=== PATIENT | female | born 1975 | race African-American/Black ===

== ENCOUNTER 2018-03-09 09:10 | Inpatient (IN) | payer SELFPAY ==
[~2018-03-09] VITALS: Ht 162.6 cm; Wt 70.0 kg
[~2018-03-09 09:10] MED LIST: PRENTAB62 PO
[2018-03-09] MEDS ORDERED: LACTATED RINGER'S 1000 ML INJ 1,000 ML IV PRN (09:59)
[2018-03-09] MEDS ORDERED: SODIUM CHLORID 0.9% 500 ML INJ 500 ML IV PRN (10:00)
[2018-03-09] MEDS ORDERED: LIDOCAINE HCL 1% 50 ML VIAL INFIL PRN (10:00)
[2018-03-09] MEDS ORDERED: OXYTOCIN 30 UNITS-500ML PREMIX 500 ML IV PRN (10:00)
[2018-03-09] MEDS ORDERED: CITRIC ACID-SODIUM CITRATE LIQ 30 ML UDC PO SCH (10:00)
[2018-03-09] MEDS ORDERED: OXYTOCIN 30 UNITS-500ML PREMIX 500 ML IV ONE (10:00)
[2018-03-09] MEDS ORDERED: MINERAL OIL 10 ML VIAL TOPICAL PRN (10:00)
[2018-03-09] MEDS ORDERED: LIDOCAINE HCL 1% 50 ML VIAL I-DERMAL PRN (10:00)
[2018-03-09 10:19] LABS: AUTOMATED NEUTROPHIL # 4.3 TH/MM3 (1.8-7.7); BASOPHIL % 0.5 % (0.0-2.0); EOSINOPHIL % 0.6 % (0.0-4.0); HEMATOCRIT 36.9 % (35.0-46.0); HEMOGLOBIN 12.9 GM/DL (11.6-15.3); LYMPH % 21.9 % (9.0-44.0); LYMPHOCYTE # 1.4 TH/MM3 (1.0-4.8); MEAN CELL VOLUME 93.8 FL (80.0-100.0); MEAN CORPUSCULAR HEMOGLOBIN 32.7 PG (27.0-34.0); MEAN CORPUSCULAR HGB CONC 34.9 % (32.0-36.0); MEAN PLATELET VOLUME 11.1 FL (7.0-11.0); MONO % 6.6 % (0.0-8.0); MONOCYTE # 0.4 TH/MM3 (0-0.9); NEUT % 70.4 % (16.0-70.0); PLATELET COUNT 94 TH/MM3 (150-450); RED BLOOD COUNT 3.93 MIL/MM3 (4.00-5.30); RED CELL DISTRIBUTION WIDTH 14.2 % (11.6-17.2); WHITE BLOOD COUNT 6.2 TH/MM3 (4.0-11.0)
[2018-03-09] MEDS ORDERED: SODIUM CHLOR 0.9% 1000 ML INJ 1,000 ML IV PRN (10:19)
[2018-03-09 10:25] LABS: AMORPHOUS SEDIMENT, URINE FEW; BACTERIA, URINE RARE /hpf; BILIRUBIN, URINE NEG (NEG); BLOOD, URINE SMALL (NEG); GLUCOSE,URINE NEG (NEG); KETONE, URINE NEG (NEG); MUCUS URINE FEW /lpf (OCC); NITRITE,URINE NEG (NEG); SQUAMOUS EPITHELIAL CELL URINE 12 /hpf (0-5); URINE COLOR LIGHT-YELLOW (YELLW/STRAW); URINE LEUKOCYTE ESTERASE LARGE (NEG)
[2018-03-09 11:05] LABS: ACANTHOCYTES OCC (NORMAL)
--- NOTE | 2018-03-09 11:23 | HHI.HP ---
HPI Chief Complaint SROM at 5pm Tuesday with no labor (PROM) Date Seen: Mar 09, 2018 Travel History International Travel<30 Days: No Contact w/Intl Traveler<30Days: No Known Affected Area: No History of Present Illness HPI 42 yo mbf at 40 + weeks at 3 cm last visit. noted leakage of fluid slightly last night and continued throughout to this am. No regular UCs. Good movement. No nausea, vomiting, blukrred vision or headache. PNC with HOGA and no PTL, GDM or HTN. Weeks Gestation: 41 Para: 1 History Past Medical History Medical History: Denies Significant Hx Past Surgical History Surgical History: No Previous Surgery Family History Family History: Negative Social History Alcohol Use: No Tobacco Use: No Substance Abuse: No Allergies-Medications (Allergen,Severity, Reaction): Coded Allergies: No Known Allergies (Unverified , 12/01/12) Home Meds Reported Medications Vit W/ Ferrous Fumara ( Vitamins Plus) Plus Tab, 1 PO 12/01/12 Physical Exam Narrative GENERAL: Well-nourished, well-developed patient. SKIN: Warm and dry. HEAD: Normocephalic and atraumatic. EYES: No scleral icterus. No injection or drainage. ENT: No nasal drainage noted. Mucous membranes pink. Airway patent. NECK: Supple, trachea midline. No JVD. CARDIOVASCULAR: Regular rate and rhythm without murmurs, gallops, or rubs. RESPIRATORY: Breath sounds equal bilaterally. No accessory muscle use. BREASTS: Bilateral exam showed no masses , no retractions, no nipple discharge. ABDOMEN/GI: Abdomen soft, non-tender, bowel sounds present, no rebound, no guarding 39 cm 3 cm/80/-2 Strip catogry one proven pelvis EFW 7 EXTREMITIES: No cyanosis or edema. BACK: Nontender without obvious deformity. No CVA tenderness. NEUROLOGICAL: Awake and alert. Motor and sensory grossly within normal limits. Five out of 5 muscle strength in all muscle groups. Normal speech. Caprini VTE Risk Assessment Caprini VTE Risk Assessment: No/Low Risk (score <= 1) Caprini Risk Assessment Model Point Value = 1 Point Value = 2 Point Value = 3 Point Value = 5 Age 41-60 Minor surgery BMI > 25 kg/m2 Swollen legs Varicose veins or History of unexplained or recurrent spontaneous Oral contraceptives or hormone replacement Sepsis (< 1 month) Serious lung disease, including pneumonia (< 1 month) Abnormal pulmonary function Acute myocardial infarction Congestive heart failure (< 1 month) History of inflammatory bowel disease Medical patient at bed rest Age 61-74 Arthroscopic surgery Major open surgery (> 45 min) Laparoscopic surgery (> 45 min) Malignancy Confined to bed (> 72 hours) Immobilizing plaster cast Central venous access Age >= 75 History of VTE Family history of VTE Factor V Leiden Prothrombin [id number] Lupus anticoagulant Anticardiolipin antibodies Elevated serum homocysteine Heparin-induced thrombocytopenia Other congenital or acquired thrombophilia Stroke (< 1 month) Elective arthroplasty Hip, pelvis, or leg fracture Acute spinal cord injury (< 1 month) Prophylaxis Regimen Total Risk Factor Score Risk Level Prophylaxis Regimen 0-1 Low Early ambulation 2 Moderate Order ONE of the following: *Sequential Compression Device (SCD) *Heparin 5000 units SQ BID 3-4 Higher Order ONE of the following medications: *Heparin 5000 units SQ TID *Enoxaparin/Lovenox 40 mg SQ daily (WT < 150 kg, CrCl > 30 mL/min) *Enoxaparin/Lovenox 30 mg SQ daily (WT < 150 kg, CrCl > 10-29 mL/min) *Enoxaparin/Lovenox 30 mg SQ BID (WT < 150 kg, CrCl > 30 mL/min) AND/OR *Sequential Compression Device (SCD) 5 or more Highest Order ONE of the following medications: *Heparin 5000 units SQ TID (Preferred with Epidurals) *Enoxaparin/Lovenox 40 mg SQ daily (WT < 150 kg, CrCl > 30 mL/min) *Enoxaparin/Lovenox 30 mg SQ daily (WT < 150 kg, CrCl > 10-29 mL/min) *Enoxaparin/Lovenox 30 mg SQ BID (WT < 150 kg, CrCl > 30 mL/min) AND *Sequential Compression Device (SCD) Data Data Orders Orders Ob (2e) Additional Admit Info (03/09/18 09:35) ^ Non Stress Test (03/09/18 09:59) Response To Medication .Post New Med Administration, Reaction (03/09/18 09:59) ^ Discontinue Medication (03/09/18 09:59) Oxytocin 30 Units-500ml Premix (Pitocin (03/09/18 10:00) Admit To Inpatient (03/09/18 ) Vital Signs (Adult) .Per protocol (03/09/18 09:59) Activity Oob Ad Alecia (03/09/18 09:59) Heart (03/09/18 09:59) Amnioinfusion (03/09/18 09:59) Urinary Catheter Management .ONCE (03/09/18 09:59) Lactated Ringer's 1000 Ml Inj (Lr 1000 M (03/09/18 09:59) Lactated Ringer's 1000 Ml Inj (Lr 1000 M (03/09/18 09:59) Sodium Chlorid 0.9% 500 Ml Inj (Ns 500 M (03/09/18 10:00) Sodium Chlor 0.9% 1000 Ml Inj (Ns 1000 M (03/09/18 10:19) Lidocaine 1% Inj (50 Ml) (Xylocaine 1% I (03/09/18 10:00) Citric Acid-Sodium Citrate Liq (Bicitra (03/09/18 10:00) Fentanyl Inj (Fentanyl Inj) (03/09/18 10:00) Fentanyl Inj (Fentanyl Inj) (03/09/18 10:00) Cefazolin Inj (Ancef Inj) (03/09/18 14:00) Complete Blood Count With Diff (03/09/18 09:59) Hold Clot (03/09/18 09:59) Abo/Rh Blood Type (03/09/18 09:59) Urinalysis - C+S If Indicated (03/09/18 09:59) Ob/Psych Drug Screen, Urine (03/09/18 09:59) Resp Oxygen Non Rebreathe Mask (03/09/18 ) ^ Epidural / Intrathecal Infus (03/09/18 09:59) Oxytocin 30 Units-500ml Premix (Pitocin (03/09/18 10:00) Lidocaine 1% Inj (50 Ml) (Xylocaine 1% I (03/09/18 10:00) Light Mineral Oil (Muri-Lube Oil) (03/09/18 10:00) Inpatient Certification (03/09/18 ) Specimen To Be Collected PRN (03/09/18 09:59) Specimen To Be Collected PRN (03/09/18 09:59) Diet Regular Basic (03/09/18 Lunch) Urine Culture (03/09/18 09:38) Labs Laboratory Tests Test 03/09/18 09:38 White Blood Count 6.2 Red Blood Count 3.93 Hemoglobin 12.9 Hematocrit 36.9 Mean Corpuscular Volume 93.8 Mean Corpuscular Hemoglobin 32.7 Mean Corpuscular Hemoglobin Concent 34.9 Red Cell Distribution Width 14.2 Platelet Count 94 Mean Platelet Volume 11.1 Neutrophils (%) (Auto) 70.4 Lymphocytes (%) (Auto) 21.9 Monocytes (%) (Auto) 6.6 Eosinophils (%) (Auto) 0.6 Basophils (%) (Auto) 0.5 Neutrophils # (Auto) 4.3 Lymphocytes # (Auto) 1.4 Monocytes # (Auto) 0.4 Eosinophils # (Auto) 0.0 Basophils # (Auto) 0.0 CBC Comment AUTO DIFF Differential Comment AUTO DIFF CONFIRMED Platelet Estimate LOW Platelet Morphology Comment ENLARGED Acanthocytes OCC Urine Color LIGHT-YELLOW Urine Turbidity HAZY Urine pH 6.0 Urine Specific [place] 1.013 Urine Protein 30 Urine Glucose (UA) NEG Urine Ketones NEG Urine Occult Blood SMALL Urine Nitrite NEG Urine Bilirubin NEG Urine Urobilinogen LESS THAN 2.0 Urine Leukocyte Esterase LARGE Urine RBC 6 Urine WBC 28 Urine Squamous Epithelial Cells 12 Urine Amorphous Sediment FEW Urine Bacteria RARE Urine Mucus FEW Microscopic Urinalysis Comment CULTURE INDICATED Urine Opiates Screen NEG Urine Barbiturates Screen NEG Urine Amphetamines Screen NEG Urine Benzodiazepines Screen NEG Urine Cocaine Screen NEG Urine Cannabinoids Screen NEG Date/Time Source Procedure Growth Status 03/09/18 09:38 Urine Clean Catch Urine Culture Pending Received Assessment/Plan Assessment and Plan anticipate will augment if needed forewater broken and ancef started can eat and use birthing ball Beti Hernandez MD Mar 09, 2018 11:23
[2018-03-09] MEDS: LACTATED RINGER'S 1000 ML INJ 1,000 ML IV SCH ×2 (14:18→17:59)
[2018-03-09] MEDS ORDERED: ACETAMINOPHEN 1000 MG/100 ML 100 ML IV SCH (21:00)
[2018-03-10] MEDS ORDERED: MEPERIDINE HCL 50 MG/ML VIAL ONE (01:07)
--- NOTE | 2018-03-10 01:16 | PD.OB.DELI ---
Weeks gestation: 41 Pt started active labor?: Yes Active labor start date: Mar 10, 2018 Active labor start time: 22:00 Medical induction of labor?: No Artificial rupture of membrane: No Anesthesia: None Episiotomy: None Vaginal Delivery: Normal Presentation: Occiput anterior Nuchal Cord: None Delayed cord clamping (45 sec): Yes : Female Delivery date: Mar 10, 2018 Delivery time: 01:15 One Minute : 8 Five Minute : 9 Weight: 7 Placenta: Spontaneous delivery Laceration: 1 deg Repair: Vicryl running Estimated blood loss: 400 Beti Hernandez MD Mar 10, 2018 01:16
[2018-03-10] MEDS ORDERED: SODIUM CHLORIDE 0.9% FLUSH 10 ML FLUSH IV FLUSH PRN (01:30)
[2018-03-10] MEDS ORDERED: OXYTOCIN 30 UNITS-500ML PREMIX 500 ML IV SCH (01:30)
[2018-03-10] MEDS ORDERED: WITCH HAZEL 50%/GLYCERIN 12.5% 40 PAD JAR TOPICAL PRN (01:30)
[2018-03-10] MEDS ORDERED: ACETAMINOPHEN/HYDROcodone 325 MG/5 MG TAB PO PRN (01:30)
[2018-03-10] MEDS ORDERED: ZOLPIDEM TARTRATE 5 MG TAB PO PRN (01:30)
[2018-03-10] MEDS ORDERED: BENZOCAINE 20% TOPICAL SPRAY 60 ML CAN TOPICAL PRN (01:30)
[2018-03-10] MEDS ORDERED: DOCUSATE SODIUM 50 MG/SENNA 8.6 MG TAB PO PRN (01:30)
[2018-03-10] MEDS ORDERED: ONDANSETRON ODT 4 MG TAB PO PRN (01:30)
[2018-03-10] MEDS ORDERED: ALUMINUM/MAGNESIUM/SIMETH 30 ML CUP PO PRN (01:30)
[2018-03-10] MEDS ORDERED: MEPERIDINE HCL 25 MG/ML VIAL IV SCH (02:00)
[2018-03-10 03:40] VITALS: BP 85/57; PULSE 65; RESP 16; TEMP 98.6
--- NOTE | 2018-03-10 08:52 | HHI.OB ---
Subjective Post Day: 0 Remarks fatigued but happy will be nursing no complaints at this time Objective Vitals/I&O Vital Signs Date Time Temp Pulse Resp B/P (MAP) Pulse Ox O2 Delivery O2 Flow Rate FiO2 03/10/18 03:40 98.6 65 16 85/57 (66) 03/10/18 02:34 14 03/10/18 02:34 14 Objective Remarks GENERAL: Well-nourished, well-developed patient. CARDIOVASCULAR: Regular rate and rhythm without murmurs, gallops, or rubs. RESPIRATORY: Breath sounds equal bilaterally. No accessory muscle use. ABDOMEN/GI: Abdomen soft, non-tender. Fundus: Firm, non-tender at umbilicus. GENITOURINARY: Light to moderate bleeding. EXTREMITIES: No cyanosis or edema, non-tender, without signs of DVT. Medications and IVs Current Medications Medications (Trade) Dose Ordered Sig/Kd Route Start Time Stop Time Status Last Admin Oxytocin 500 ml @ 0 mls/hr TITRATE PRN IV 03/09/18 10:00 Lactated Ringer's 1,000 ml @ 125 mls/hr Q8H IV 03/09/18 09:59 03/09/18 17:59 Lactated Ringer's 1,000 ml @ 3,000 mls/hr Q20M PRN IV 03/09/18 09:59 03/09/18 14:18 Sodium Chloride 500 ml @ 1,000 mls/hr ONCE PRN IV 03/09/18 10:00 03/10/18 09:59 Sodium Chloride 1,000 ml @ 100 mls/hr Q10H PRN IV 03/09/18 10:19 (Xylocaine 1% Inj (50 ml)) 0.1 ml UNSCH X1 PRN I-DERMAL 03/09/18 10:00 03/12/18 09:59 (Bicitra Liq) 30 ml FORKLIFT TRUCK OPERATOR PO 03/09/18 10:00 03/13/18 09:59 (fentaNYL INJ) 50 mcg Q1H PRN IV PUSH 03/09/18 10:00 (fentaNYL INJ) 100 mcg Q1H PRN IV PUSH 03/09/18 10:00 (Xylocaine 1% Inj (50 ml)) 10 ml UNSCH X1 PRN INFIL 03/09/18 10:00 03/11/18 09:59 (Muri-Lube Oil) 10 ml UNSCH PRN TOPICAL 03/09/18 10:00 (NS Flush) 2 ml BID IV FLUSH 03/10/18 09:00 (NS Flush) 2 ml UNSCH PRN IV FLUSH 03/10/18 01:30 (Tylenol) 650 mg Q4H PRN PO 03/10/18 01:30 (Motrin) 800 mg Q8H PRN PO 03/10/18 01:30 (Americaine 20% Top Spr) 1 spray Q4H PRN TOPICAL 03/10/18 01:30 03/10/18 03:47 (Tucks Pads) 1 applic QID PRN TOPICAL 03/10/18 01:30 03/10/18 03:46 (Avis-Colace) 2 tab Q12H PRN PO 03/10/18 01:30 (Ambien) 5 mg HS PRN PO 03/10/18 01:30 (M-M-R Ii Inj) 0.5 ml ONCE ONCE SQ 03/10/18 16:00 03/10/18 16:01 (Boostrix Inj) 0.5 ml ONCE ONCE IM 03/10/18 16:00 03/10/18 16:01 (Mag-Al Plus Susp Liq) 15 ml Q8H PRN PO 03/10/18 01:30 (Zofran Odt) 4 mg Q6H PRN PO 03/10/18 01:30 ([place] 5-325 Mg) 1 tab Q6H PRN PO 03/10/18 01:30 03/10/18 01:34 Assessment/Plan Assessment and Plan anticipate will augment if needed forewater broken and ancef started can eat and use birthing ball 03/10/18 PPD 0 doing well in post resting probable discharge Tuesday Beti Hernandez MD Mar 10, 2018 08:52
[2018-03-10] MEDS ORDERED: SODIUM CHLORIDE 0.9% FLUSH 10 ML FLUSH IV FLUSH SCH (09:00)
[2018-03-10] MEDS: ACETAMINOPHEN 325 MG TAB PO PRN ×2 (10:00→17:45)
[2018-03-10] MEDS: IBUPROFEN 800 MG TAB PO PRN ×2 (10:01→17:46)
[2018-03-10] MEDS ORDERED: MEASLES, MUMPS, RUBELLA VACCINE 0.5 ML VIAL SQ ONE (16:00)
[2018-03-10] MEDS ORDERED: DIPHTH/TETANUS/ACEL PERTUSSIS (BOOSTER) 0.5 ML VIAL/PFS IM ONE (16:00)
[2018-03-11] MEDS: IBUPROFEN 800 MG TAB PO PRN (08:52)
--- NOTE | 2018-03-11 09:23 | HHI.OB ---
Subjective Post Day: 1 Remarks comfortable today after nursing well Objective Objective Remarks GENERAL: Well-nourished, well-developed patient. CARDIOVASCULAR: Regular rate and rhythm without murmurs, gallops, or rubs. RESPIRATORY: Breath sounds equal bilaterally. No accessory muscle use. ABDOMEN/GI: Abdomen soft, non-tender. Fundus: Firm, non-tender at umbilicus. GENITOURINARY: Light to moderate bleeding. EXTREMITIES: No cyanosis or edema, non-tender, without signs of DVT. Medications and IVs Current Medications Medications (Trade) Dose Ordered Sig/Kd Route Start Time Stop Time Status Last Admin Oxytocin 500 ml @ 0 mls/hr TITRATE PRN IV 03/09/18 10:00 Lactated Ringer's 1,000 ml @ 125 mls/hr Q8H IV 03/09/18 09:59 03/09/18 17:59 Lactated Ringer's 1,000 ml @ 3,000 mls/hr Q20M PRN IV 03/09/18 09:59 03/09/18 14:18 Sodium Chloride 1,000 ml @ 100 mls/hr Q10H PRN IV 03/09/18 10:19 (Xylocaine 1% Inj (50 ml)) 0.1 ml UNSCH X1 PRN I-DERMAL 03/09/18 10:00 03/12/18 09:59 (Bicitra Liq) 30 ml SCALE CLERK PO 03/09/18 10:00 03/13/18 09:59 (fentaNYL INJ) 50 mcg Q1H PRN IV PUSH 03/09/18 10:00 (fentaNYL INJ) 100 mcg Q1H PRN IV PUSH 03/09/18 10:00 (Xylocaine 1% Inj (50 ml)) 10 ml UNSCH X1 PRN INFIL 03/09/18 10:00 03/11/18 09:59 (Muri-Lube Oil) 10 ml UNSCH PRN TOPICAL 03/09/18 10:00 (NS Flush) 2 ml BID IV FLUSH 03/10/18 09:00 (NS Flush) 2 ml UNSCH PRN IV FLUSH 03/10/18 01:30 (Tylenol) 650 mg Q4H PRN PO 03/10/18 01:30 03/10/18 17:45 (Motrin) 800 mg Q8H PRN PO 03/10/18 01:30 03/11/18 08:52 (Americaine 20% Top Spr) 1 spray Q4H PRN TOPICAL 03/10/18 01:30 03/10/18 03:47 (Tucks Pads) 1 applic QID PRN TOPICAL 03/10/18 01:30 03/10/18 03:46 (Avis-Colace) 2 tab Q12H PRN PO 03/10/18 01:30 (Ambien) 5 mg HS PRN PO 03/10/18 01:30 (Mag-Al Plus Susp Liq) 15 ml Q8H PRN PO 03/10/18 01:30 (Zofran Odt) 4 mg Q6H PRN PO 03/10/18 01:30 ([place] 5-325 Mg) 1 tab Q6H PRN PO 03/10/18 01:30 03/10/18 01:34 Assessment/Plan Assessment and Plan anticipate will augment if needed forewater broken and ancef started can eat and use birthing ball 03/10/18 PPD 0 doing well in post resting probable discharge Tuesday03/11/18 PPD 1 discharge home RTO 6 weeks or prn counseled on PPD, bleeding and BP issues Beti Hernandez MD Mar 11, 2018 09:23
[2018-03-11] MEDS ORDERED: IBUP1TAB7 PO (09:24)
--- NOTE | 2018-03-11 09:25 | HHI.DCPOC ---
Discharge Care Plan Report Symptoms to Your Doctor -Temperature above 100.5 degrees -Redness, of incision or excessive or foul smelling drainage -Unusual pain or calf pain -Increased vaginal bleeding -Painful or difficulty urinating -Feelings of extreme sadness or anxiety after 2 weeks Goals to Promote Your Health * To prevent worsening of your condition and complications * To maintain your health at the optimal level Directions to Meet Your Goals Take your medications as prescribed Follow your dietary instruction Follow activity as directed Ensure plenty of rest for recovery Drink fluids for hydration Keep your appointments as scheduled Take your immunizations and boosters as scheduled If your symptoms worsen call your PCP, if no PCP go to Urgent Care Center or Emergency Room Smoking is Dangerous to Your Health. Avoid second hand smoke Call the 24-hour crisis hotline for domestic abuse at Beti Hernandez MD Mar 11, 2018 09:25
== END 2018-03-11 18:45 | disposition home or self-care (01) | DRG 775 ==
LOC: HOBED 09:10 → H2EB 09:40 → H1EA 03-10 03:04
PROVIDERS: ADMIT Obstetrics & Gynecology; ATTEND Obstetrics & Gynecology
PROC: 10E0XZZ Delivery of Products of Conception, External Approach (ICD-10-PCS; principal; 2018-03-10)
PROC: 0HQ9XZZ Repair Perineum Skin, External Approach (ICD-10-PCS; 2018-03-10)
DX: O48.0 Post-term pregnancy (principal); O70.0 First degree perineal laceration during delivery; Z37.0 Single live birth; Z3A.41 41 weeks gestation of pregnancy
CPT/HCPCS: 59025; 80307; 81001; 84112; 85025; 86900; 86901; 87086; G0481; J0690; J2175; J2590; J7120